=== PATIENT | female | born 1970 | race Caucasian/White ===

== ENCOUNTER 2018-08-31 06:11 | Emergency (ER) | payer OTHER ==
[~2018-08-31] VITALS: Ht 160 cm; Wt 56.7 kg
[~2018-08-31 06:11] MED LIST: BENZTROPINE1 MG PO; GEODON80 MG PO; LASIX20 MG PO; NORCO 325 MG-101 TAB PO; NORGESTIMATE AN1 TAB PO; PHENERGAN25 M3 PO; SOMA350 MG PO; STADOL NS10 MG/ML NAS; TOPIRAMATE50 MG PO; ZOFRAN ODT4 MG PO
[2018-08-31] MEDS ORDERED: TYLENOL325 M1 PO (07:34)
[2018-08-31] MEDS ORDERED: NAPROSYN500 MG PO (07:34)
== END 2018-08-31 07:38 | disposition home or self-care (01) ==
LOC: ED 06:11
DX: R09.1 Pleurisy (principal); F17.210 Nicotine dependence, cigarettes, uncomplicated; Z88.5 Allergy status to narcotic agent; Z79.899 Other long term (current) drug therapy